=== PATIENT | female | born 1965 | race Caucasian/White ===

== ENCOUNTER 2016-11-07 09:56 | Emergency (ER) | payer OTHER ==
[2016-11-07 10:20] VITALS: BP 119/80; PULSE 76; RESP 20; TEMP 97.9; O2SAT 96
--- NOTE | 2016-11-07 10:36 | UCPHY ---
H & P Patient Type: New Chief Complaint Nursing Narrative: L knee pain/numbness and tingling x 2 days. pain radiates up and down lateral leg. pedal pulses 2+. able to bear weight and move distally. HPI/ROS: CHIEF COMPLAINT: Left knee pain. HISTORY OF PRESENT ILLNESS: The patient is a 51-year-old female who presents with 2 days of atraumatic left knee pain. She reports that she has associated numbness and paresthesias that radiate down to her left foot. The pain is causing her to have difficulty walking and the pain is worsened with movement. She tells me that bending her knee causes her to feel a crackling inside the knee. She denies weakness, back pain, rash, calf pain, peripheral edema, hip pain, or other complaints. She has been taking 400mg Ibuprofen intermittently for the pain. REVIEW OF SYSTEMS: A ten point review of systems was performed and is negative with the exception of the items mentioned in the HPI. Source: Patient Exam Limitations: No limitations - Medical/Surgical History PMH: Hypothyroidism, T/A. - Family History Significant Family History: No pertinent family hx - Social History Smoking Status: Never smoked Additional Social History: Nonsmoker. [employer]. Social alcohol use. No recreational drug abuse. - Physical Exam Exam: General Appearance: Alert. Vital signs reviewed. Focused physical exam was performed. Respiratory: Lungs are clear to auscultation; no wheezes, rales, or rhonchi. Cardiovascular: Regular rate and rhythm; no murmur, rub, or gallop. Pulses:2+ dorsalis pedis pulses. Skin: Warm and dry, no rashes on exposed skin, normal color. Back: Nontender to palpation over the thoracolumbar spine. No CVAT. Extremities: No lower extremity edema, no calf tenderness or swelling. Left knee: Tenderness along both medial and lateral joint lines, worse on medial line. Normal active and passive range of motion of left knee. Due to the patient 's body habitus I cannot examine for effusion. No ligamentous laxity with provocative testing. Neurological: Alert and oriented. Normal motor and sensory exam of bilateral lower extremities. Psychiatric: Normal affect. Constitutional: Initial Vital Signs Temperature (C) 36.6 C 11/07/16 10:17 Heart Rate 76 11/07/16 10:17 Respiratory Rate 20 04/16/17 10:17 Blood Pressure 119/80 04/16/17 10:17 O2 Sat (%) 96 11/07/16 10:17 O2 Delivery Mode Room Air Allergies/Adverse Reactions: nalbuphine HCl [From Nubain] Allergy (Severe, Verified 11/07/16 10:16) Anaphylaxis prednisone Allergy (Mild, Verified 11/07/16 10:16) heart palpitations Home Medications: Medication Instructions Recorded [place] Thyroid 11/07/16 Medical Decision Making - Diagnostics Imaging Results: Left knee xray reviewed by me in PACS. No fracture, dislocation, STS, or effusion. ED Course/Re-evaluation: This 51-year-old female presents with 2 days of atraumatic knee pain. She has tenderness along both the medial and lateral joint lines. She has been treating the pain with Ibuprofen. Left knee x-ray ordered. She will be placed in a knee brace and instructed to follow up with her primary care provider. I independently reviewed the patient's images on the PACS system. My interpretation: No acute process. 1123: Reassessed patient. Discussed results of x-rays. She is comfortable going home. Differential Diagnosis: DDX includes but is not limited to fracture, dislocation, sprain, infection. - Data Points Medications Given: Discontinued Medications Acetaminophen (Tylenol) 975 mg PO EDNOW ONE Stop: 11/07/16 11:01 Last Admin: 11/07/16 11:20 Dose: 650 mg Departure - Departure Disposition: Home, Routine, Self-Care Clinical Impression: Left knee pain Qualifiers: Chronicity: acute Qualified Code(s): M25.562 - Pain in left knee Condition: Good Instructions: Knee Pain (ED) Additional Instructions: Follow up with your primary care provider this week for reevaluation if pain is not improving. Rest, ice, and elevate your leg when possible. Take 600mg Ibuprofen every 6-8 hours as needed for pain. This can be alternated with 650mg Tylenol every 4-6 hours. These medications are safe to take together. Return for any serious worsening of condition. Referrals: [facility] [Other] - As per Instructions Stand Alone Forms: Work Excuse - PQRS PQRS Measurement: Not applicable Report Scribed for: Sherry Carmen Report Scribed by: Swapnil Tavarez Date of Report: 04/16/17 Time of Report: 10:53 Physician Review and Approval Statement: 11/07/16 10:36 Portions of this note were transcribed by the medical dir. I, Dr. Sherry Carmen, personally performed the history, physical exam, and medical decision- making; and confirmed the accuracy of the information in the transcribed note.
[2016-11-07] MEDS ORDERED: ACETAMINOPHEN 325 MG TAB PO ONE (11:00)
== END 2016-11-07 11:36 | disposition home or self-care (01) ==
LOC: CED 09:56
DX: M25.562 Pain in left knee (principal); R20.0 Anesthesia of skin; R20.2 Paresthesia of skin; E03.9 Hypothyroidism, unspecified
CPT/HCPCS: 73562-PO; 99204-PO; G0463-PO